=== PATIENT | female | born 1960 | race Two or more races ===

== ENCOUNTER 2019-12-02 10:45 | Emergency (ER) | payer MEDICAID ==
[~2019-12-02] VITALS: Ht 152.4 cm; Wt 48.5 kg
--- NOTE | 2019-12-02 10:45 | NUR ---
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 WILL CONTINUE TO MONITOR.
--- NOTE | 2019-12-02 11:05 | NUR ---
SEEN AND EXAMINED BY .
[2019-12-02] MEDS ORDERED: MECLIZINE HCL 25 MG TABLET ONE (11:09)
--- NOTE | 2019-12-02 11:14 | NUR ---
ER PHLEB AT BEDSIDE FOR BLOOD DRAW.
[2019-12-02 11:26] LABS: EOSINOPHILS % (AUTO) 2.1 % (0.0-6.0); HEMATOCRIT 32 % (33-45); HEMOGLOBIN 10.3 g/dL (11.5-14.8); LYMPHOCYTES # (AUTO) 1.1 /CMM (0.8-4.8); LYMPHOCYTES % (AUTO) 27.3 % (20.0-44.0); MEAN CORPUSCULAR HGB CONC 32 g/dl (31.0-36.0); MEAN CORPUSCULAR VOLUME 72 fL (82-100); MONOCYTES # (AUTO) 0.2 /CMM (0.1-1.30); MONOCYTES % (AUTO) 5.2 % (2.0-12.0); NEUTROPHILS # (AUTO) 2.5 /CMM (1.8-8.9); NEUTROPHILS % (AUTO) 64.4 % (43.0-81.0); PLATELET COUNT (AUTO) 289 /CMM (150-450); RED BLOOD CELL COUNT(AUTO) 4.42 MIL/uL (4.0-5.2); WHITE BLOOD COUNT (AUTO) 3.9 K/uL (4.3-11.0)
[2019-12-02] MEDS ORDERED: MECLIZINE HCL 12.5 MG TABLET PO ONE (11:30)
[2019-12-02 11:33] LABS: CALCIUM, SERUM 9.7 mg/dL (8.5-10.1); CARBON DIOXIDE 27 mmol/L (21-32); CHLORIDE 95 mmol/L (98-107); CREATININE 1.2 mg/dL (0.6-1.3); GLUCOSE 349 mg/dL (74-106); POTASSIUM 3.6 mmol/L (3.5-5.1); SODIUM SERUM 134 mmol/L (136-145); UREA NITROGEN, BLOOD 26 mg/dL (7-18)
--- NOTE | 2019-12-02 11:34 | NUR ---
FLOOR WORKER WELL SERVICE AT BEDSIDE FOR XRAY.
--- NOTE | 2019-12-02 12:23 | NUR ---
Patient discharged to home in stable condition. Written and verbal after care instructions given. Patient verbalizes understanding of instruction.
[2019-12-02 12:25] VITALS: BP 148/81
== END 2019-12-02 12:26 | disposition home or self-care (01) ==
LOC: ER 10:53
DX: R42 Dizziness and giddiness (principal); R20.2 Paresthesia of skin; M79.662 Pain in left lower leg; M79.661 Pain in right lower leg; I10 Essential (primary) hypertension; J45.909 Unspecified asthma, uncomplicated; E11.9 Type 2 diabetes mellitus without complications; Z88.6 Allergy status to analgesic agent
CPT/HCPCS: 36415; 71045; 80048; 84484; 85025; 93005; 99285; J8597

== ENCOUNTER 2021-04-04 18:33 | Emergency (ER) | payer MEDICAID, OTHER ==
[~2021-04-04] VITALS: Ht 162.6 cm; Wt 59.0 kg
--- NOTE | 2021-04-04 19:23 | NUR ---
REPORT GIVEN TO NURSE HITESH FOR MATT
--- NOTE | 2021-04-04 19:48 | NUR ---
Patients sister is Kylie Salazar, phone#:[phone]
[2021-04-04 20:13] LABS: BASOPHILS # (AUTO) 0.1 K/uL (0.0-0.2); BASOPHILS % (AUTO) 0.8 % (0.0-2.0); EOSINOPHILS % (AUTO) 2.7 % (0.0-6.0); HEMATOCRIT 33 % (33-45); HEMOGLOBIN 10.7 g/dL (11.5-14.8); LYMPHOCYTES # (AUTO) 1.4 K/uL (0.8-4.8); LYMPHOCYTES % (AUTO) 22.8 % (20.0-44.0); MEAN CORPUSCULAR HGB CONC 32 g/dl (31.0-36.0); MEAN CORPUSCULAR VOLUME 73 fL (82-100); MONOCYTES # (AUTO) 0.3 K/uL (0.1-1.30); MONOCYTES % (AUTO) 4.9 % (2.0-12.0); NEUTROPHILS # (AUTO) 4.3 K/uL (1.8-8.9); NEUTROPHILS % (AUTO) 68.8 % (43.0-81.0); PLATELET COUNT (AUTO) 320 K/uL (150-450); RED BLOOD CELL COUNT(AUTO) 4.53 MIL/uL (4.0-5.2); WHITE BLOOD COUNT (AUTO) 6.2 K/uL (4.3-11.0)
[2021-04-04 20:14] LABS: ALANINE AMINOTRANSFERASE 22 U/L (12-78); ALBUMIN 3.7 g/dL (3.4-5.0); ALKALINE PHOSPHATASE 176 U/L (46-116); ASPARTATE AMINOTRANSFERASE 13 U/L (15-37); BILIRUBIN,DIRECT 0.1 mg/dL (0.0-0.2); BILIRUBIN,TOTAL 0.2 mg/dL (0.2-1.0); CALCIUM, SERUM 9.1 mg/dL (8.5-10.1); CARBON DIOXIDE 29 mmol/L (21-32); CHLORIDE 98 mmol/L (98-107); CREATININE 1.4 mg/dL (0.6-1.3); POTASSIUM 3.8 mmol/L (3.5-5.1); SODIUM SERUM 136 mmol/L (136-145); UREA NITROGEN, BLOOD 22 mg/dL (7-18)
[2021-04-04 20:18] LABS: GLUCOSE 486 mg/dL (74-106)
--- NOTE | 2021-04-04 20:18 | NUR ---
GLUCOSE 486
[2021-04-04] MEDS ORDERED: INSULIN REGULAR, HUMAN 100 UNIT/ML 10 ML VIAL SQ ONE (20:30)
[2021-04-04] MEDS ORDERED: IV NS 0.9% 1,000 ML BAG IV ONE (20:30)
[2021-04-04] MEDS ORDERED: INSULIN REGULAR, HUMAN 100 UNIT/ML 10 ML VIAL ONE (20:33)
[2021-04-04] MEDS ORDERED: ASPIRIN 81 MG TAB.CHEW PO ONE (21:00)
[2021-04-04 21:13] LABS: BAND % (MANUAL) 1 % (0.0-5.0); EOSINOPHILS % (MANUAL) 5 % (0-4); LYMPHOCYTES % (MANUAL) 21 % (16-48); MONOCYTES % (MANUAL) 4 % (0-11.0); NEUTROPHILS % (MANUAL) 69 (42-76)
[2021-04-04] MEDS ORDERED: ASPIRIN 81 MG TAB.CHEW ONE (21:32)
--- NOTE | 2021-04-04 22:58 | NUR ---
PT TAKEN TO CT
--- NOTE | 2021-04-04 23:57 | NUR ---
PT RESTING COMFORTABLY. VSS.
--- NOTE | 2021-04-05 04:14 | NUR ---
[facility] CALLED FOR TRANSPORT. NO ALS AVAILABLE.
--- NOTE | 2021-04-05 05:00 | NUR ---
PT VSS, RESTING IN BED, NO ACUTE DISTRESS NOTED, TOLERATING PO FUILDS WELL.
--- NOTE | 2021-04-05 06:13 | NUR ---
[facility]
--- NOTE | 2021-04-05 06:15 | NUR ---
PT ACCEPTED TO [facility] ER BY DR VALDEZ. # FOR REPORT [phone]
--- NOTE | 2021-04-05 06:18 | NUR ---
[facility] CALLED FOR ALS TRANSPORT. ETA 09
--- NOTE | 2021-04-05 07:12 | NUR ---
CALLED [facility] ER FOR REPORT, PLACED ON HOLD, LIZANDRO MANSFIELD STATED CALLED AFTER CHANGE OF SHIFT
--- NOTE | 2021-04-05 08:00 | NUR ---
THE PATIENT IS RECEIVED IN ER BED #13. ALERT AND ORIENTED X4. DENIES PAIN. IN ROOM AIR AND DENIES SOB. RESPIRATION REGULAR AND UNLABORED. WILL CONTINUE TO MONITOR THE PATIENT.
--- NOTE | 2021-04-05 08:09 | NUR ---
REPORT GIVEN TO NURSE DEL CASTILLO FROM [facility] ER. Addendum: 04/05/21 at 0929 by CONG NURSE DEL CASTILLO MADE AWARE THAT THE PATIENT HAD CONTAST AND NO METFORMIN TO BE GIVEN PER POLICY HOURS.
--- NOTE | 2021-04-05 09:14 | NUR ---
REPORT GIVEN TO [facility] STAFF
[2021-04-05 09:23] VITALS: BP 182/96
--- NOTE | 2021-04-05 09:23 | NUR ---
DR ULLOA MADE AWARE OF BP 182/96 AND HR 92. NO NEW ORDER PER DR ULLOA AND PER DR ULLOA OK TO TRANSFER THE PATIENT.
--- NOTE | 2021-04-05 09:30 | NUR ---
Patient Tranfers to [facility] in stable condition via arranged ambulance.
== END 2021-04-05 09:33 | disposition short-term general hospital (02) ==
LOC: ER 18:34
DX: R53.1 Weakness (principal); E11.65 Type 2 diabetes mellitus with hyperglycemia; I10 Essential (primary) hypertension; J45.909 Unspecified asthma, uncomplicated; Z20.822 Contact with and (suspected) exposure to COVID-19; Z88.6 Allergy status to analgesic agent; R29.6 Repeated falls; Z86.73 Personal history of transient ischemic attack (TIA), and cerebral infarction without residual deficits; R94.31 Abnormal electrocardiogram [ECG] [EKG]
CPT/HCPCS: 36415; 70450; 70496; 70498; 71045; 80048; 80076; 82962; 84484; 85007; 85025; 85730; 87426; 93005; 96360; 96372; 99291; C9803; J1815; J7030

== ENCOUNTER 2022-08-27 19:38 | Emergency (ER) | payer OTHER ==
[~2022-08-27] VITALS: Ht 152.4 cm; Wt 49.9 kg
--- NOTE | 2022-08-27 19:45 | NUR ---
[id number] FROM HOME FOR CONFUSION AND WEAKNESS, INITIAL BLOOD SUGAR 60, GIVEN JUICE AND D10, DIAPHORETIC, BLOOD SUGAR NOW 192 PER EMS
--- NOTE | 2022-08-27 19:50 | NUR ---
GLUCOSE 153
--- NOTE | 2022-08-27 19:57 | NUR ---
DR. SURESH AT BEDSIDE
--- NOTE | 2022-08-27 20:20 | NUR ---
LAB AT BEDSIDE
--- NOTE | 2022-08-27 20:25 | NUR ---
COVID ANTIGEN COLLECTED SENT TO LAB
--- NOTE | 2022-08-27 20:41 | NUR ---
PT TAKEN TO CT
[2022-08-27 20:44] LABS: BASOPHILS # (AUTO) 0.1 K/uL (0.0-0.2); BASOPHILS % (AUTO) 0.8 % (0.0-2.0); EOSINOPHILS % (AUTO) 3.1 % (0.0-6.0); HEMATOCRIT 36 % (33-45); HEMOGLOBIN 11.2 g/dL (11.5-14.8); LYMPHOCYTES # (AUTO) 1.5 K/uL (0.8-4.8); LYMPHOCYTES % (AUTO) 14.5 % (20.0-44.0); MEAN CORPUSCULAR HGB CONC 31 g/dl (31.0-36.0); MEAN CORPUSCULAR VOLUME 72 fL (82-100); MONOCYTES # (AUTO) 0.5 K/uL (0.1-1.30); MONOCYTES % (AUTO) 5.3 % (2.0-12.0); NEUTROPHILS # (AUTO) 7.8 K/uL (1.8-8.9); NEUTROPHILS % (AUTO) 76.3 % (43.0-81.0); PLATELET COUNT (AUTO) 302 K/uL (150-450); RED BLOOD CELL COUNT(AUTO) 4.97 MIL/uL (4.0-5.2); WHITE BLOOD COUNT (AUTO) 10.2 K/uL (4.3-11.0)
--- NOTE | 2022-08-27 20:50 | NUR ---
PT RETURNED FROM CT
[2022-08-27 21:05] LABS: ALANINE AMINOTRANSFERASE 26 U/L (12-78); ALBUMIN 3.8 g/dL (3.4-5.0); ALKALINE PHOSPHATASE 112 U/L (46-116); ASPARTATE AMINOTRANSFERASE 20 U/L (15-37); BILIRUBIN,TOTAL 0.2 mg/dL (0.2-1.0); CALCIUM, SERUM 9.7 mg/dL (8.5-10.1); CARBON DIOXIDE 25 mmol/L (21-32); CHLORIDE 103 mmol/L (98-107); GLUCOSE 176 mg/dL (74-106); POTASSIUM 4.1 mmol/L (3.5-5.1); SODIUM SERUM 137 mmol/L (136-145); TOTAL PROTEIN, SERUM 7.8 g/dL (6.4-8.2); UREA NITROGEN, BLOOD 23 mg/dL (7-18)
[2022-08-27 23:03] VITALS: BP 145/80
[2022-08-28 00:32] LABS: BASOPHILS % (MANUAL) 0 % (0.0-2.0); EOSINOPHILS % (MANUAL) 3 % (0-4); LYMPHOCYTES % (MANUAL) 16 % (16-48); MONOCYTES % (MANUAL) 7 % (0-11.0); NEUTROPHILS % (MANUAL) 74 (42-76)
== END 2022-08-27 23:04 | disposition home or self-care (01) ==
LOC: ER 20:00
DX: E11.65 Type 2 diabetes mellitus with hyperglycemia (principal); I10 Essential (primary) hypertension; J45.909 Unspecified asthma, uncomplicated; R51.9 Headache, unspecified; Z20.822 Contact with and (suspected) exposure to COVID-19; Z88.1 Allergy status to other antibiotic agents
CPT/HCPCS: 99284; 70450; 87426; 93005; 85025; 80048; 80076; 36415; 84484; 82962; 85007; C9803

== ENCOUNTER 2024-11-19 01:04 | Inpatient (IN) | payer MEDICAID, OTHER ==
[~2024-11-19] VITALS: Ht 149.9 cm; Wt 51.3 kg
[2024-11-19 01:31] LABS: PLATELET COUNT (AUTO) 316 K/uL (150-450); RED BLOOD CELL COUNT(AUTO) 4.68 MIL/uL (4.0-5.2); RED CELL DISTRIBUTION WIDTH 16.9 % (11.5-15.0); WHITE BLOOD COUNT (AUTO) 6.4 K/uL (4.3-11.0)
[2024-11-19] MEDS ORDERED: LORAZEPAM INJ 2 MG/ML VIAL ONE (01:33)
[2024-11-19] MEDS: LORAZEPAM INJ 2 MG/ML VIAL IV ONE (01:36)
[2024-11-19 01:44] LABS: ASPARTATE AMINOTRANSFERASE 20.0 U/L (15-37); CALCIUM, SERUM 10.0 mg/dL (8.5-10.1); CREATININE 1.3 mg/dL (0.6-1.3); SODIUM SERUM 139.0 mmol/L (136-145); TOTAL PROTEIN, SERUM 8.2 g/dL (6.4-8.2); UREA NITROGEN, BLOOD 38.0 mg/dL (7-18)
[2024-11-19 01:52] LABS: CREATINE KINASE, TOTAL 169.0 U/L (26-192)
[2024-11-19] MEDS ORDERED: ACETAMINOPHEN 325 MG TABLET PO PRN (03:30)
[2024-11-19] MEDS ORDERED: ONDANSETRON HCL/PF 4 MG/2 ML VIAL IVP PRN (03:30)
[2024-11-19] MEDS ORDERED: MAGNESIUM HYDROXIDE 30 ML UDC PO PRN (03:30)
[2024-11-19] MEDS ORDERED: MAG HYDROX/AL HYDROX/SIMETH 30 ML UDC PO PRN (03:30)
[2024-11-19 03:38] VITALS: BP 150/69; TEMP 97.7; O2SAT 97
[2024-11-19] MEDS: ASPIRIN 325 MG TABLET PO ONE (04:23)
[2024-11-19 04:30] VITALS: BP 150/69; TEMP 97.7; O2SAT 98
[2024-11-19] MEDS: MAGNESIUM OXIDE 400 MG TABLET PO ONE (05:55)
[2024-11-19] MEDS ORDERED: DEXTROSE 50%-WATER 50 ML DISP.SYRIN IV PRN (06:00)
[2024-11-19] MEDS: BLOOD SUGAR DIAGNOSTIC 1 EACH STRIP IN SCH (06:34)
[2024-11-19] MEDS: INSULIN REGULAR, HUMAN 100 UNIT/ML 3 ML VIAL SQ PRN (06:34)
[2024-11-19 06:44] LABS: APPEARANCE,URINE CLEAR (CLEAR); BLOOD, URINE TRACE-INTA Ery/uL (NEGATIVE); LEUKOCYTE ESTERASE ,URINE NEGATIVE (NEGATIVE); NITRITE, URINE NEGATIVE (NEGATIVE); UGLUCOSE NEGATIVE (NEGATIVE)
[2024-11-19 06:58] LABS: AMPHETAMINE, URINE NEGATIVE (NEGATIVE); BARBITURATE, URINE NEGATIVE (NEGATIVE); BENZODIAZEPINE, URINE NEGATIVE (NEGATIVE); CANNABINOID, URINE NEGATIVE (NEGATIVE); COCCAINE, URINE NEGATIVE (NEGATIVE); OPIATE, URINE NEGATIVE (NEGATIVE)
[2024-11-19] MEDS ORDERED: BLOOD SUGAR DIAGNOSTIC 1 EACH STRIP IN SCH (07:30)
[2024-11-19 07:52] LABS: INR 0.93 (0.91-1.10)
[2024-11-19 07:58] LABS: ADD URINE CULTURE NO; SQUAMOUS EPITHELIAL CELL,UR 0-2 /HPF (None Seen)
[2024-11-19 08:00] VITALS: BP 169/84; TEMP 98.1; O2SAT 99
[2024-11-19] MEDS: CLOPIDOGREL BISULFATE 75 MG TABLET PO SCH (08:15)
[2024-11-19] MEDS ORDERED: METF1000 PO (08:21)
[2024-11-19] MEDS ORDERED: ATOR80TA PO (08:21)
[2024-11-19] MEDS ORDERED: LATA2.5D15 EACHEYE (08:21)
[2024-11-19] MEDS ORDERED: ALBU8.5H8 IH (08:21)
[2024-11-19] MEDS ORDERED: BENA20TA9 PO (08:21)
[2024-11-19] MEDS ORDERED: SEMA3TAB PO (08:21)
[2024-11-19] MEDS ORDERED: AMLO-213 PO (08:21)
[2024-11-19] MEDS ORDERED: INSU100I30 SQ (08:21)
[2024-11-19] MEDS ORDERED: GABA300C PO (08:21)
[2024-11-19 10:00] VITALS: BP_SYST 128; BP_SYST 134; BP_SYST 99; BP_DIAS 63; BP_DIAS 66; O2SAT 96
[2024-11-19] MEDS ORDERED: ALBUTEROL FS 2.5 MG/3 ML VIAL.NEB NEB PRN (10:00)
[2024-11-19 16:00] VITALS: BP 125/104; TEMP 98.2; O2SAT 99
[2024-11-19] MEDS: GABAPENTIN 300 MG CAPSULE PO SCH (16:27)
[2024-11-19 20:00] VITALS: BP 145/73; TEMP 98.1; O2SAT 96
[2024-11-19] MEDS: ENOXAPARIN SODIUM 40 MG/0.4 ML DISP.SYRIN SQ SCH (20:19)
[2024-11-19] MEDS: LATANOPROST EYE DROP 0.005% 2.5 ML BOTTLE EACHEYE SCH (21:10)
[2024-11-19] MEDS ORDERED: INSULIN GLARGINE, 100 UNIT/ML CARTRIDGE SQ SCH (22:00)
[2024-11-19] MEDS ORDERED: ATORVASTATIN 40 MG TABLET PO SCH (22:00)
[2024-11-20] VITALS: BP_SYST 136; BP_SYST 140; BP_DIAS 64; BP_DIAS 79; TEMP 97.9; O2SAT 97
[2024-11-20 04:00] VITALS: BP 143/51; TEMP 97.8; O2SAT 97
[2024-11-20 07:03] LABS: LDL 86.0 mg/dL (0-99)
[2024-11-20 07:05] LABS: ASPARTATE AMINOTRANSFERASE 19.0 U/L (15-37); CALCIUM, SERUM 9.4 mg/dL (8.5-10.1); CREATININE 1.0 mg/dL (0.6-1.3); PHOSPHORUS 4.1 mg/dL (2.5-4.9); SODIUM SERUM 143.0 mmol/L (136-145); TOTAL PROTEIN, SERUM 6.9 g/dL (6.4-8.2); UREA NITROGEN, BLOOD 27.0 mg/dL (7-18)
[2024-11-20 08:00] VITALS: BP 129/76; TEMP 98.1; O2SAT 96
[2024-11-20] MEDS: ASPIRIN 81 MG TAB.CHEW PO SCH (08:30)
[2024-11-20] MEDS: ATORVASTATIN 40 MG TABLET PO SCH (08:30)
[2024-11-20] MEDS: BENAZEPRIL HCL 20 MG TABLET PO SCH (08:30)
[2024-11-20 08:31] VITALS: BP 129/76
[2024-11-20] MEDS: AMLODIPINE BESYLATE 10 MG TABLET PO SCH (08:31)
[2024-11-20 08:46] LABS: PLATELET COUNT (AUTO) 261 K/uL (150-450); RED BLOOD CELL COUNT(AUTO) 4.14 MIL/uL (4.0-5.2); RED CELL DISTRIBUTION WIDTH 16.2 % (11.5-15.0); WHITE BLOOD COUNT (AUTO) 4.5 K/uL (4.3-11.0)
[2024-11-20] MEDS ORDERED: ASPI-1169 PO (12:18)
[2024-11-20] MEDS ORDERED: CLOP75TA15 PO (12:18)
[2024-11-20 12:50] LABS: INR 0.97 (0.91-1.10)
== END 2024-11-20 17:50 | disposition home health service (06) | DRG 47 ==
LOC: ER 01:07 → TELE 03:02 → MED 11-20 15:42
PROVIDERS: ADMIT Nurse Practitioner Acute Care; ATTEND Student in an Organized Health Care Education/Training Program
DX: G45.9 Transient cerebral ischemic attack, unspecified (principal); E11.42 Type 2 diabetes mellitus with diabetic polyneuropathy; I69.351 Hemiplegia and hemiparesis following cerebral infarction affecting right dominant side; D64.9 Anemia, unspecified; E78.5 Hyperlipidemia, unspecified; E83.42 Hypomagnesemia; I10 Essential (primary) hypertension; Z79.84 Long term (current) use of oral hypoglycemic drugs; J32.9 Chronic sinusitis, unspecified; R53.1 Weakness; R20.0 Anesthesia of skin; I69.892 Facial weakness following other cerebrovascular disease; Z79.899 Other long term (current) drug therapy; R29.700 NIHSS score 0
CPT/HCPCS: 36415; 70450-TC; 80053-TC; 80061-TC; 81001; 82550-TC; 82607-TC; 82962-TC; 83735-TC; 84100-TC; 84425; 84439-TC; 84443-TC; 84484-TC; 85025-TC; 85652-TC; 85730-TC; 92526; 92611; 93880-TC; 97110-TC; 97116-TC; 97530-TC; 97535-TC; G0378; J1650; J1815; J2060